=== PATIENT | male | born 1990 | race Two or more races ===

== ENCOUNTER 2017-10-04 06:52 | Emergency (ER) | payer OTHER ==
[~2017-10-04] VITALS: Ht 167.6 cm; Wt 120.7 kg
[~2017-10-04 06:52] MED LIST: AUGMENTIN 125-150 ML; CIPRO500 MG PO; CORTISPORIN EAR10 ML; DEMEBORO OTIC DROPS OT; DOLOGESIC CAPSU1 CAP PO; DOLOGESIC-DF 51 EACH PO; FLONASE16 GM NASAL; PHENAGIL TABLE1 EACH PO
== END 2017-10-04 14:34 | disposition home or self-care (01) ==
LOC: ER 06:52
DX: K52.89 Other specified noninfective gastroenteritis and colitis (principal)

== ENCOUNTER 2017-12-02 17:18 | Emergency (ER) | payer OTHER ==
[~2017-12-02] VITALS: Ht 167.6 cm; Wt 118.4 kg
== END 2017-12-02 21:31 | disposition home or self-care (01) ==
LOC: ER 17:18
DX: S61.211A Laceration without foreign body of left index finger without damage to nail, initial encounter (principal); W26.0XXA Contact with knife, initial encounter; Y93.89 Activity, other specified; Y92.090 Kitchen in other non-institutional residence as the place of occurrence of the external cause; Y99.8 Other external cause status

== ENCOUNTER 2019-11-29 23:21 | Emergency (ER) | payer OTHER ==
[~2019-11-29] VITALS: Ht 170.2 cm; Wt 119.3 kg
[2019-11-30] MEDS ORDERED: ANALPRAM HC 2.530 GM RECTAL (04:58)
== END 2019-11-30 05:13 | disposition home or self-care (01) ==
LOC: ER 23:21
DX: R10.31 Right lower quadrant pain (principal)

== ENCOUNTER 2020-08-17 08:15 | Emergency (ER) | payer OTHER ==
[~2020-08-17] VITALS: Ht 167.6 cm; Wt 111.6 kg
[~2020-08-17 08:15] MED LIST changes: +ANALPRAM HC 2.530 GM RECTAL
[2020-08-17] MEDS ORDERED: PROAIR RESPICL90 MCG IH (11:44)
[2020-08-17] MEDS ORDERED: MUCINEX FAST-M180 M2 PO (11:44)
[2020-08-17] MEDS ORDERED: BENZONATATE200 M1 PO (11:44)
[2020-08-17] MEDS ORDERED: CLARITIN10 M1 PO (11:45)
== END 2020-08-17 13:16 | disposition home or self-care (01) ==
LOC: ER 08:15
DX: J40 Bronchitis, not specified as acute or chronic (principal); J31.2 Chronic pharyngitis; J06.9 Acute upper respiratory infection, unspecified; Z11.52 Encounter for screening for COVID-19

== ENCOUNTER 2021-03-14 09:17 | Emergency (ER) | payer OTHER ==
[~2021-03-14] VITALS: Ht 167.6 cm; Wt 111.1 kg
[~2021-03-14 09:17] MED LIST changes: +BENZONATATE200 M1 PO; +CLARITIN10 M1 PO; +MUCINEX FAST-M180 M2 PO; +PROAIR RESPICL90 MCG IH
[2021-03-14] MEDS ORDERED: KETO10TA2 PO (11:01)
[2021-03-14] MEDS ORDERED: NORFLEX100MG PO (11:01)
== END 2021-03-14 11:04 | disposition home or self-care (01) ==
LOC: ER 09:17
DX: M79.671 Pain in right foot (principal)

== ENCOUNTER 2021-07-21 18:25 | Emergency (ER) | payer OTHER ==
[~2021-07-21] VITALS: Ht 167.6 cm; Wt 108.9 kg
[~2021-07-21 18:25] MED LIST changes: +KETO10TA2 PO; +NORFLEX100MG PO
[2021-07-21] MEDS ORDERED: PEPCID AC20 MG PO (20:34)
== END 2021-07-21 20:44 | disposition home or self-care (01) ==
LOC: ER 18:25
DX: K29.70 Gastritis, unspecified, without bleeding (principal); R11.2 Nausea with vomiting, unspecified; Z88.0 Allergy status to penicillin

== ENCOUNTER 2022-02-28 02:39 | Outpatient (CLI) | payer OTHER ==
[~2022-02-28 02:39] MED LIST changes: +PEPCID AC20 MG PO
== END 2022-02-28 23:00 | disposition home or self-care (01) ==
LOC: LAB 02:39
PROVIDERS: ATTEND Emergency Medicine
DX: Z20.828 Contact with and (suspected) exposure to other viral communicable diseases (principal); Z20.818 Contact with and (suspected) exposure to other bacterial communicable diseases

== ENCOUNTER 2024-02-28 16:15 | Emergency (ER) | payer OTHER ==
[~2024-02-28] VITALS: Ht 170.2 cm; Wt 117.9 kg
[2024-02-28] MEDS ORDERED: LEVALBUTER0.63 MG/3 IH (17:43)
[2024-02-28] MEDS ORDERED: OSEL75CA PO (17:43)
[2024-02-28] MEDS ORDERED: BENZONATATE200 M1 PO (17:43)
[2024-02-28] MEDS ORDERED: ZOFRAN8 MG PO (17:43)
[2024-02-28] MEDS ORDERED: PEPCID AC20 MG PO (17:43)
== END 2024-02-28 19:27 | disposition home or self-care (01) ==
LOC: ER 16:17
DX: J11.1 Influenza due to unidentified influenza virus with other respiratory manifestations (principal); Z88.0 Allergy status to penicillin

== ENCOUNTER 2024-06-20 01:06 | Emergency (ER) | payer OTHER ==
[~2024-06-20] VITALS: Ht 170.2 cm; Wt 111.1 kg
[~2024-06-20 01:06] MED LIST changes: +LEVALBUTER0.63 MG/3 IH; +OSEL75CA PO; +ZOFRAN8 MG PO
[2024-06-20] MEDS ORDERED: FAMOtidine 10 MG/ML (4ML VIAL) IV PUSH STA (01:17)
[2024-06-20] MEDS ORDERED: 0.9 % SODIUM CHLORIDE 1,000 ML IV STA (01:17)
[2024-06-20] MEDS ORDERED: ONDANSETRON HCL 2 MG/ML VIAL IV STA (01:17)
[2024-06-20] MEDS ORDERED: MORPHINE SULFATE 4 MG/ML VIAL IV STA (01:18)
[2024-06-20] MEDS ORDERED: MAG HYDROX/ALUMINUM HYD/SIMETH 30 ML BLIST.PACK PO SCH (01:30)
[2024-06-20] MEDS ORDERED: HYOSCYAMINE SULFATE 0.125 MG TAB.SUBL SL ONE (01:30)
[2024-06-20] MEDS ORDERED: FAMOTIDINE/PF 20 MG/2 ML VIAL ONE (01:32)
[2024-06-20] MEDS ORDERED: MAG HYDROX/ALUMINUM HYD/SIMETH 30 ML BLIST.PACK PO ONE (01:32)
[2024-06-20] MEDS ORDERED: ONDANSETRON HCL 2 MG/ML VIAL ONE (01:32)
[2024-06-20] MEDS ORDERED: HYOSCYAMINE SULFATE 0.125 MG TAB.SUBL ONE (01:32)
[2024-06-20 01:43] LABS: HEMATOCRIT 44.3 % (39.0-48.0); HEMOGLOBIN 15.3 g/dL (13-16.00); MEAN CELL VOLUME 87.7 fL (80.0-100.00); MEAN CORPUSCULAR HEMOGLOBIN 30.3 pg (27.00-32.0); MEAN CORPUSCULAR HGB CONC 34.5 g/dl (32.0-36.0); PLATELET COUNT 228 K/uL (150-450); RED BLOOD COUNT 5.04 M/uL (4.00-6.00)
[2024-06-20 02:08] LABS: BILIRUBIN TOTAL 0.46 mg/dL (0.3-1.2); CALCIUM 9.1 mg/dL (8.5-10.1); CREATININE SERUM 1.38 mg/dL (0.70-1.30); GFR 59.71; GLOBULINA 3.7 G/DL (2.4-3.5); POTASSIUM 3.89 mEq/L (3.5-5.1); TOTAL PROTEIN 7.7 gm/dL (6.4-8.2)
[2024-06-20] MEDS ORDERED: PEPCID AC20 MG PO (03:20)
[2024-06-20] MEDS ORDERED: PRILOSEC OTC20 MG PO (03:20)
== END 2024-06-20 03:29 | disposition home or self-care (01) ==
LOC: ER 01:06
PROVIDERS: Emergency Medicine
DX: R10.13 Epigastric pain (principal); Z88.0 Allergy status to penicillin; Z87.09 Personal history of other diseases of the respiratory system; Z87.11 Personal history of peptic ulcer disease